=== PATIENT | male | born 1965 | race Caucasian/White ===

== ENCOUNTER → 2016-04-29 | Outpatient (CLI) | payer BC, OTHER ==
[~2016-04-29] VITALS: Ht 165.1 cm; Wt 106.6 kg
[~2016-04-29] MED LIST: CIPR500T3 PO; METH10TA2 PO; NS 1,000 ML IV SCH; PERC5TAB6 PO; PROPOFOL 200 MG/20 ML VIAL As Ordered ONE; SUMA100T2 PO; VERA240T6 PO
--- NOTE | 2016-04-29 11:06 | ROOR ---
Patient Name: Clayton Lester Procedure Date: 04/29/2016 10:48 AM Date of : 1965 Age: 50 Room: [facility] Gender: Male Note Status: Finalized Procedure: Colonoscopy Indications: Screening for colorectal malignant neoplasm Providers: Luis Randall Jr, MD Referring MD: Sagrario Hernandes DO Requesting Provider: Medicines: Propofol per Anesthesia Complications: No immediate complications. Procedure: Pre-Anesthesia Assessment: - Prior to the procedure, a History and Physical was performed, and patient medications and allergies were reviewed. The patient is competent. The risks and benefits of the procedure and the sedation options and risks were discussed with the patient. All questions were answered and informed consent was obtained. Patient identification and proposed procedure were verified by the physician and the nurse in the pre-procedure area and in the procedure room. Mental Status Examination: alert and oriented. Airway Examination: normal oropharyngeal airway and neck mobility. Respiratory Examination: clear to auscultation. CV Examination: normal. ASA Grade Assessment: II - A patient with mild systemic disease. After reviewing the risks and benefits, the patient was deemed in satisfactory condition to undergo the procedure. The anesthesia plan was to use moderate sedation / analgesia (conscious sedation). Immediately prior to administration of medications, the patient was re-assessed for adequacy to receive sedatives. The heart rate, respiratory rate, oxygen saturations, blood pressure, adequacy of pulmonary ventilation, and response to care were monitored throughout the procedure. The physical status of the patient was re-assessed after the procedure. The Colonoscope was introduced through the anus and advanced to the cecum, identified by appendiceal orifice and ileocecal valve. The colonoscopy was performed without difficulty. The patient tolerated the procedure well. The quality of the bowel preparation was adequate and fair. Findings: The perianal and digital rectal examinations were normal. Pertinent negatives include normal sphincter tone, no palpable rectal lesions and no anal lesion or abnormality was detected. Multiple small and large-mouthed diverticula were found in the sigmoid colon. The rectum, recto-sigmoid colon, descending colon, transverse colon, ascending colon, cecum and ileocecal valve appeared normal. Impression: - Preparation of the colon was fair. - Diverticulosis in the sigmoid colon. - The rectum, recto-sigmoid colon, descending colon, transverse colon, ascending colon, cecum and ileocecal valve are normal. - No specimens collected. Recommendation: - Discharge patient to home (ambulatory). - Repeat colonoscopy in 10 years for screening purposes. Luis Randall MD Luis Randall Jr, MD 04/29/2016 11:06:13 AM This report has been signed electronically. Number of Addenda: 0 Note Initiated On: 04/29/2016 10:48 AM Estimated Blood Loss: Estimated blood loss: none.
[2016-04-29 11:30] VITALS: BP 145/93
== END | disposition home or self-care (01) ==
LOC: M OPP 10:18
PROVIDERS: ATTEND Surgery
DX: Z12.11 Encounter for screening for malignant neoplasm of colon (principal); K57.30 Diverticulosis of large intestine without perforation or abscess without bleeding; I10 Essential (primary) hypertension; R73.9 Hyperglycemia, unspecified; G43.909 Migraine, unspecified, not intractable, without status migrainosus; E66.9 Obesity, unspecified; M54.5 Low back pain; M19.90 Unspecified osteoarthritis, unspecified site; G62.9 Polyneuropathy, unspecified; Z57.8 Occupational exposure to other risk factors; Z79.899 Other long term (current) drug therapy
CPT/HCPCS: 99156; 99157; G0121

== ENCOUNTER 2023-07-08 06:12 | Day surgery (SDC) | payer BC ==
[~2023-07-08] VITALS: Ht 165.1 cm; Wt 77.6 kg
[~2023-07-08 06:12] MED LIST changes: +FLOM0.4C39 PO; +LOSA50TA28 PO; +LR 1,000 ML IV SCH; +METH-1177 PO; -METH10TA2 PO; -NS 1,000 ML IV SCH; +PERC5TAB12 PO; -PERC5TAB6 PO; -PROPOFOL 200 MG/20 ML VIAL As Ordered ONE; +TRAZ-252 PO; +VERA360C PO
[2023-07-08] MEDS ORDERED: LIDOCAINE 2% 100MG/5ML SDV (FOR ANES.) As Ordered ONE (06:52)
[2023-07-08] MEDS ORDERED: ROCURONIUM BROMIDE 50MG/5ML VIAL As Ordered ONE (06:52)
[2023-07-08] MEDS ORDERED: SUGAMMADEX SODIUM 500 MG/5 ML VIAL (BRIDION) As Ordered ONE (06:52)
[2023-07-08] MEDS ORDERED: KETOROLAC 60MG 2ML VIAL As Ordered ONE (06:52)
[2023-07-08] MEDS ORDERED: fentaNYL 100 MCG/2 ML INJECTION As Ordered ONE (06:52)
[2023-07-08] MEDS ORDERED: propofoL 200 MG/20 ML VIAL As Ordered ONE (06:52)
[2023-07-08] MEDS ORDERED: ONDANSETRON 4MG 2ML VIAL As Ordered ONE (06:52)
[2023-07-08] MEDS ORDERED: MIDAZOLAM INJ 2MG/2ML VIAL As Ordered ONE (06:53)
[2023-07-08] MEDS: ceFAZolin SOD 2 GM in IV 1 EA IV ONE (07:45)
[2023-07-08] MEDS ORDERED: fentaNYL 100 MCG/2 ML INJECTION IV PRN (08:35)
[2023-07-08] MEDS ORDERED: MEPERIDINE 25 MG/ML 1ML VIAL IV PRN (08:35)
[2023-07-08] MEDS ORDERED: diphenhydrAMINE 50MG/ML VIAL IV PRN (08:35)
[2023-07-08] MEDS ORDERED: METOCLOPRAMIDE INJ 10MG/2ML VIAL IV PRN (08:35)
[2023-07-08] MEDS ORDERED: ONDANSETRON 4MG 2ML VIAL IV PRN (08:35)
[2023-07-08] MEDS ORDERED: LR 1,000 ML IV SCH (08:35)
[2023-07-08] MEDS ORDERED: oxyCODONE 5MG TAB PO PRN (08:35)
[2023-07-08 09:10] VITALS: BP 111/60; TEMP 97.3; O2SAT 100
== END 2023-07-08 09:40 | disposition home or self-care (01) ==
LOC: M SDC 06:12
PROVIDERS: ATTEND Surgery
DX: K42.9 Umbilical hernia without obstruction or gangrene (principal); J30.2 Other seasonal allergic rhinitis; Z79.899 Other long term (current) drug therapy
CPT/HCPCS: 49593; 88302; C9290; J0665; J0690; J1100; J1885; J2250; J2405; J3010

== ENCOUNTER → 2024-10-05 | Outpatient (CLI) | payer BC ==
[~2024-10-05] MED LIST changes: -FLOM0.4C39 PO; -LR 1,000 ML IV SCH; +TAMS-18 PO
== END ==
LOC: M RAD 10:02
PROVIDERS: ATTEND Physician Assistant
DX: M51.16 Intervertebral disc disorders with radiculopathy, lumbar region (principal); M47.816 Spondylosis without myelopathy or radiculopathy, lumbar region